=== PATIENT | female | born 1975 | race American Indian/Alaskan Native ===

== ENCOUNTER 2019-09-28 12:46 | Outpatient (CLI) | payer BC ==
--- NOTE | 2019-09-28 14:18 | Mammography Report ---
BILATERAL DIGITAL SCREENING MAMMOGRAM WITH CAD INDICATION: Routine screening mammography. TECHNIQUE: Digital bilateral 2D mammography was obtained in the craniocaudal and mediolateral obliq ue projections. This examination was interpreted with the benefit of Computer-Aided Detection mumtazi s. COMPARISON: 07/25/2013. FINDINGS: Breast Density: The breasts are almost entirely fatty. No suspicious mass, microcalcifications, or architectural distortion. IMPRESSION: No evidence of breast malignancy. Recommend routine screening mammogram in one year. BI-RADS Category 1: Negative. No mammographic evidence of malignancy. Recommend routine screening m ammography in one year. A "normal" or negative report should not discourage follow up or biopsy of a clinically significant f inding. A written summary of these findings will be mailed to the patient. The patient will be entered into a mammography reporting system which will generate a reminder letter for the patient's next appointmen t at the appropriate interval. The [employer] recommends yearly mammograms starting at age 40 and continuing as l anne marie as a woman is in good health. Breast MRI is recommended for women with an approximate 20-25% or greater lifetime risk of breast cancer, including women with a strong family history of breast or ova jhonatan cancer or who have been treated for Hodgkin's disease. Signer Name: Tommy Alfredo MD Signed: 09/28/2019 2:14 PM Workstation Name: [id number]
== END 2019-09-28 12:47 | disposition home or self-care (01) ==
LOC: MAMMO 12:46
PROVIDERS: ATTEND Obstetrics & Gynecology
DX: Z12.31 Encounter for screening mammogram for malignant neoplasm of breast (principal); N64.89 Other specified disorders of breast
CPT/HCPCS: 77067

== ENCOUNTER 2020-06-20 06:08 | Observation (INO) | payer BC ==
--- NOTE | 2020-06-14 16:51 | History and Physical Report ---
History of Present Illness Date of examination: 06/14/20 History of present illness: This is a 44 years old female who presents preoperative examination. The patient complains of menorrhagia and abnormal periods, metrorrhagia, dysmenorrhea, pelvic pain, The symptoms began 12 months ago. She complains of clotting, history of fibroids and cramping, irregular menses. Patient denies mid-cycle spotting, lack of menses, history of ovarian cysts, history of thyroid disease, history of PCOS, history of bleeding disorder, lightheadedness and fatigue. Interval between menses is 22 days and 28 days. Menstrual flow lasts 7 days and > 7 days. Patient reports that for pain she uses Tylenol and ibuprofen without much releif. Patient's symptoms when present disrupts her normal daily activities Patient desires definitive treatment. Patient's work up has included hysterosonogram which revealed myomas with a benign endometrial biopsy. Vital Signs: Patient Profile: 44 Years Old Female LMP: 05/31/2020 Height: 69 inches (175.26 cm) Weight: 257 pounds BMI: 37.95 BP sittin / 60 (left arm) Pt. in pain? no Menstrual History: LMP (date): 05/31/2020 Current Method of Contraception: BTL Past History : 2 Term Births: 2 Premature Births: 0 Living Children: 2 Para: 2 Mult. Births: 0 Prev : 0 Aborta: 0 Elect. Ab: 0 Spont. Ab: 0 Ectopics: 0 PROTECTION AGENT History Uterine Surgery (not C/S): negative Operations: Tubal Ligation (04/10/2016) Hospitalizations: negative Anesthesia Complications: negative Abnormal PAP: negative Uterine Anomaly: positive fibroids AGUSTINA Exposure: negative Infertility: negative Infection History HIV Risk Eval: no Hep B Immunized: no TB exposure: no Personal hx. of genital herpes: no Partner hx. of genital herpes: no Rash/viral illness since LMP: no Hx of STD: None Current Allergies (reviewed today): * NKDA (Critical) Past Medical History: Fibroids Past Surgical History: Tubal Ligation (04/10/2016) Family History Summary: General Comments - FH: No Family History of Ovarvian Cancer Family History of Colon Cancer--sister dx at age 34, FH bone cancer--mother Family History Breast Cancer(two cousins) Social History: Patient is Risk Factors: Smoked Tobacco Use: Former smoker Smokeless Tobacco Use: Never Passive smoke exposure: no Alcohol use: yes Type: occ Review of Systems General Complains of fatigue. Denies fever, chills, sweats, anorexia, weakness, malaise, weight loss and sleep disorder. Complains of menorrhagia, pelvic pain and painful periods. Denies vaginal discharge, incontinence, dysuria, hematuria, urinary frequency, amenorrhea, abnormal vaginal bleeding, genital sores, decreased libido, painful sex, urinary urgency, hot flashes, vaginal dryness, vaginal itching and vaginal odor. CV Denies chest pains, palpitations, syncope, dyspnea on exertion, orthopnea, PND and peripheral edema. Resp Denies cough, dyspnea at rest, excessive sputum, hemoptysis, wheezing and pleurisy. GI Denies nausea, vomiting, diarrhea, constipation, change in bowel habits, abdominal pain, melena, hematochezia, jaundice, gas/bloating, indigestion/heartburn, dysphagia and odynophagia. Breast Denies left breast lump, right breast lump, nipple discharge, bloody discharge from nipple, breast pain, abnormal mammogram and breast enlargement. Psych Denies depression, anxiety, irritability and mood swings. Past History Past Medical History: other (SEE HPI FOR DETAILS) Past Surgical History: Other (SEE HPI FOR DETAILS) Social history: , full code, other (SEE HPI FOR DETAILS) Family history: other (SEE HPI FOR DETAILS) Medications and Allergies Allergies Allergy/AdvReac Type Severity Reaction Status Date / Time No Known Allergies Allergy Unverified 06/12/20 12:40 Home Medications Medication Instructions Recorded Confirmed Last Taken Type Omeprazole Magnesium [PriLOSEC Otc] 20 mg PO QDAY PRN 06/12/20 06/12/20 Unknown History Review of Systems Constitutional: other (SEE HPI FOR DETAILS) Exam - Physical Exam Narrative exam: HEENT: normocephalic, no lesions or deformities Skin no ulcers, xanthomas Chest: respiratory effort normal, clear to auscultation CV: regular, normal S1-S2, no murmur, no rub, no gallop Abdomen: soft, non-tender, no masses, bowel sounds normal obese Musculoskeletal: grossly normal ROM in joints, no joint tenderness or muscle weakness Neuro: no gross anomalities Extremities: no clubbing, cyanosis, or edema PROTECTION AGENT Exams Vulva/Vagina: normal appearance, no discharge, lesions. No evidence of cystocele or rectocele. Cervix: No lesions; no cervical motion tenderness Uterus: enlarged uterus 8 - 10 weeks size Adnexae: unable to palpate due to obesity Rectovaginal: Rectal exam deferred due to colonoscopy recently performed or is planned Assessment and Plan - Patient Problems (1) Intramural leiomyoma of uterus Status: Acute Plan to address problem: Diagnosis explained to patient . Questions answered. Patient's symptoms when present disrupts her normal daily activities Discussed with patient various medical, surgical and radiological therapies common for treatment including expectant management, myomectomy hysterectomy and uterine artery embolization Patient desires hysterectomy Discussed risks and benefits of laparotomy, laparoscopy, vaginal and robotic assisted approaches for hysterectomies Patient desires robotic assisted total hysterectomy. Patient desires robotic assisted total hysterectomy. Consent reviewed and signed . The risks and alternatives for this surgery were reviewed with the patient. Discuss the risks of the surgery including infection, bleeding possibly heavy enough to require a blood transfusion, possible damage to bowel, bladder or ureter. Patient understand that this surgery with make her sterile.Patient understands if her ovaries are removed she will become menopausal. Also if unable to complete robitcally a laparotomy may requiired. Patient understands and desires to proceed. (2) Severe dysmenorrhea Status: Acute Plan to address problem: Patient complains of worsening pain. Probably secondary to # 1 (3) Menorrhagia Status: Acute Qualifiers: Menorrhagia type: with regular cycle Qualified Code(s): N92.0 - Excessive and frequent menstruation with regular cycle Plan to address problem: Probably secondary to # 1 (4) Adult BMI 37.0-37.9 kg/sq m Status: Chronic
--- NOTE | 2020-06-18 09:37 | Anesthesia Consultation ---
Anesthesia Consult and Med Hx Date of service: 06/18/20 - Airway Anesthetic Teeth Evaluation: Caps, Crowns ROM Head & Neck: Adequate Mental/Hyoid Distance: Adequate Mallampati Class: Class II Intubation Access Assessment: Good - Pre-Operative Health Status ASA Pre-Surgery Classification: ASA3 Proposed Anesthetic Plan: General Nerve Block: TAP - Pulmonary Hx Smoking: Yes (Former) Hx Asthma: Yes (Not treated in a very long time) Hx Respiratory Symptoms: No (+2FS) Hx Sleep Apnea: No (Denies) - Central Nervous System Hx Neuromuscular Disorder: Yes (PCOS) Hx Psychiatric Problems: No - Gastrointestinal Hx Gastroesophageal Reflux Disease: Yes - Endocrine Hx Renal Disease: No Hx Liver Disease: No Hx Thyroid Disease: Yes (In the past) - Hematic Hx Anemia: Yes Hx Sickle Cell Disease: No - Other Systems Hx Alcohol Use: Yes (Occas) Hx Cancer: No
[2020-06-18 10:03] LABS: Basophils % (Auto) 0.5 % (0.0-1.8); Eosinophils # (Auto) 0.2 K/mm3 (0.0-0.4); Eosinophils % (Auto) 2.6 % (0.0-4.3); Hematocrit 34.9 % (30.3-42.9); Hemoglobin 10.7 gm/dl (10.1-14.3); Lymphocytes # (Auto) 1.6 K/mm3 (1.2-5.4); Lymphocytes % (Auto) 27.4 % (13.4-35.0); Mean Corpuscular HGB Conc 31 % (30-34); Mean Corpuscular Volume 75 fl (79-97); Monocytes # (Auto) 0.7 K/mm3 (0.0-0.8); Monocytes % (Auto) 12.8 % (0.0-7.3); Platelet Count 462 K/mm3 (140-440); Red Blood Count 4.63 M/mm3 (3.65-5.03); Red Cell Distribution Width 17.6 % (13.2-15.2)
[2020-06-18 10:41] LABS: BUN/Creatinine Ratio 14; Blood Urea Nitrogen 11 mg/dL (7-17); Hemolysis Index 0
[~2020-06-20 06:08] MED LIST: ACETAMINOPHEN 500 MG TAB PO ONE; CELECOXIB 200 MG CAP PO NR; GABAPENTIN 300 MG CAP PO NR; LACTATED RINGERS 1,000 ML IV SCH; MAGNESIUM OXIDE 400 MG TAB PO ONE; MIDAZOLAM 2 MG/2 ML INJ IV NR; fentaNYL 100 MCG/2 ML INJ IV ONE
[2020-06-20] MEDS ORDERED: NEOMY 40 MG/POLYMYXIN B 200,000 UNITS/ML (GU) AMPULE IR ONE ×2 (06:22→08:52)
[2020-06-20] MEDS ORDERED: METHYLENE BLUE 50 MG/10 ML AMP ONE (06:23)
[2020-06-20] MEDS ORDERED: BUPIVACAINE/PF (0.25%) 2.5 MG/ML 30 ML VIAL INFILTRATI ONE (07:00)
[2020-06-20] MEDS ORDERED: ceFAZolin/Water 2 GM/20 ML 2 GM/20 ML SYRINGE IV NR (07:00)
[2020-06-20] MEDS ORDERED: LIDOCAINE (1%) 10 MG/1 ML VIAL 20 ML MDV ONE (07:02)
[2020-06-20] MEDS ORDERED: dexAMETHasone 20 MG/5 ML VIAL ONE ×2 (07:02→07:32)
[2020-06-20] MEDS ORDERED: HYDROmorphone 1 MG/1 ML INJ IV PRN ×2 (07:16)
[2020-06-20] MEDS ORDERED: ONDANSETRON 4 MG/2 ML INJ IV PRN ×2 (07:16→11:13)
--- NOTE | 2020-06-20 07:16 | Anesthesia Day of Surgery ---
Anesthesia Day of Surgery - Day of Surgery Patient Examined: Yes Patient H&P Reviewed: Yes Patient is NPO: Yes
--- NOTE | 2020-06-20 07:26 | Anesthesia Day of Surgery ---
Anesthesia Day of Surgery - Day of Surgery Patient Examined: Yes Patient H&P Reviewed: Yes Patient is NPO: Yes
--- NOTE | 2020-06-20 07:28 | Progress Note ---
Regional Anesthesia Block - Regional Anesthesia Block Start Time: 07:05 Stop Time: 07:15 Performed By:: RJ GREEN Procedure: Kofi Tap Block with Ultrasound Pt Id, consent, time out; performed. Pt on monitor, VSS stable, sedation given per pre-op RN. Sterile prep and drape. Left side Landmarks Identified with ultrasound. 3cc 1% lido skin wheel. Needle advance in plane, 15cc .25% bupivacaine with 15 m ns injected intimately with negatives aspiration. Right side Landmarks Identified with ultrasound. 3cc 1% lido skin wheel. Needle advance in plane, 15cc .25% bupivacaine with 15 m ns injected intimately with negatives aspiration Pt tolerated procedure will, VSS stable. Right side Landmarks Identified with ultrasound. 3cc 1% lido skin wheel. Needle advance in plane, 15cc .25% bupivacaine injected intimately with negatives aspiration. Pt tolerated procedure will, VSS stable.
[2020-06-20] MEDS ORDERED: ROCURONIUM 50 MG/5 ML INJ IV ONE (07:32)
[2020-06-20] MEDS ORDERED: LIDOCAINE MPF (2%) 20 MG/1 ML VIAL 5 ML ONE (07:32)
[2020-06-20] MEDS ORDERED: propofoL 200 MG/20 ML VIAL IV ONE (07:33)
[2020-06-20] MEDS ORDERED: HYDROmorphone 1 MG/1 ML INJ ONE (07:45)
[2020-06-20] MEDS ORDERED: GLYCOPYRROLATE 0.4 MG/2 ML INJ ONE (07:48)
[2020-06-20] MEDS ORDERED: PHENYLEPHRINE/NS 1,000 MCG/10 ML SYRINGE (OR USE) IV ONE (07:48)
[2020-06-20] MEDS ORDERED: NEOSTIGMINE 10MG/10 ML INJ MDV ONE (07:48)
[2020-06-20] MEDS ORDERED: SUCCINYLCHOLINE CHLORIDE 200 MG/10 ML INJ MDV ONE (07:49)
[2020-06-20] MEDS ORDERED: SODIUM CHLORIDE 0.9% IRR 1,500 ML BOTTLE IR ONE (08:51)
[2020-06-20] MEDS ORDERED: SODIUM CHLORIDE 0.9% IRRIG SOLN 2000 ML IR ONE (08:53)
--- NOTE | 2020-06-20 10:23 | Operative Report ---
Operative Report Operative Report: Date of procedure: June 20, 2020 Pre-operative diagnosis: Symptomatic leiomyomata with menorrhalgia and d ysmenorrhea. Body mass index of 38 kg/m Post-operative diagnosis: Same Procedure name(s):Robotic Assisted Total Hysterectomy with bilateral salpingectomy Surgeon: Toni Bonds MD Satellite Installer: Nidia Lin, certified emergency vehicle technician Anesthesia: General EBL: 30 cc Complications: None Findings: Patient with uterus approximately 8 to 10 weeks size with a posterior myoma measuring about 4 to 5 cm in diameter. Had normal-appearing ovaries bilaterally and bilaterally interrupted fallopian tubes Specimen(s): Uterus with cervix and bilateral fallopian tubes Procedure: Patient was brought to the operating room where general anesthesia was induced without difficulty. Patient was placed in the dorsal lithotomy position. Prepped and draped in the usual sterile manner for robotic procedure. Clark catheter was placed without difficulty. Speculum was placed in the vagina. A medium V-Care Uterine manipulator was placed without difficulty. Attention was now switched to the patient's abdomen. A vertical supra-umbilicus incision was made with a scalpel. A 10-12 trocar was placed in this incision under direct visualization. Intra-abdominal placement was verified with no evidence of internal organ damage. The patient was insufflated approximately 3 and half liters of CO2 gas. The patient pelvic findings were noted as above. It was determined that the patient was a candidate for robotic procedure. On both sides the umbilical incision at about 8 cm, incisions were made for robotic trocars. Each robotic trocar was placed under direct visualization with no evidence of internal organ damage. One 5 mm trocar was placed 2 fingerbreadths above the right iliac crest. A 5 mm camera was placed in the right lower quadrant trocar, the 10-12 trocar was removed and a Santiago Dennison laparoscopic port closure device was placed through this incision under direct visualization with no evidence of internal organ damage. The camera was then replaced into this port. At this time the patient was placed in extreme Trendelenburg. The da Sathish robot was then docked on the patient's left side. The trocars connected to the robot appropriately robotic instruments were placed under direct visualization no evidence of internal organ damage.. At this time I took my place under the robotic operating forman. Starting on the patient's right side the ureter was identified and found to be out of the operative field. Using the robotic vessel sealer the mesosalpinx under the fallopian tube were cauterized and cut starting from the distal end. Utero-ovarian complex was then cauterized and cut. This was followed by cauterizing and cutting the right fallopian tube and right round ligament. The broad ligament was then opened. The bladder flap was formed anteriorly. The posterior broad ligament was then excised. The uterine vessels were skeletonized. The ureter was clearly seen out of the operative field. The bladder was pushed away from the anterior uterus. The right uterine vessels were then cauterized and cut. Attention was then switched to the patient's left side. The same procedure was repeated on the left side with perform the salpingectomy followed by isolating the uterine vessels cauterized and cutting and completing the bladder flap from the left side. At this time the uterus was appearing very cyanotic. After inspecting the bladder flap to insured no evidence of bladder injury, the colpotomy was then started. Incision started at 6:00 until the V-Care could be seen. This incision was extended from 6:00 to 9:00. Then from 6:00 to 3:00. Then from 9:00 to 12:00. This incision was extended from 3:00 to 12:00. At this time colpotomy was complete with no evidence of adjacent organ damage. The creative assistant remove the uterus from through the colpotomy site. The vaginal cuff was irrigated and cauterized and found to be hemostatic. The cuff was closed with roboticly using 0 V- Lock suture. This closure was hemostatic after irrigation and Bovie. All pedicles were inspected and found to be hemostatic. The ureters were identified bilaterally and found to be functioning normal. The patient had clear urine in the Clark catheter with no evidence of mixture with blood. Juanita was placed on the cuff and pedicles for postoperative hemostasis . All instruments were then removed. The large trocar sites were closed in layers 2-0 Vicryl and 4-0 Monocryl. The smaller incisions were closed subcuticularly with 4-0 Monocryl. Dermabond was placed over the skin incisions. The patient tolerated procedure well. She was awakened in the operating room and accompanied to the recovery room in good condition.
[2020-06-20] MEDS ORDERED: D5W/LACTATED RINGERS 1,000 ML IV SCH (11:13)
[2020-06-20] MEDS ORDERED: HYDROcodone/ACETAMINOPHEN 5-325 MG TAB PO PRN (11:13)
[2020-06-20] MEDS ORDERED: ACETAMINOPHEN 325 MG TAB PO PRN (11:13)
[2020-06-20] MEDS ORDERED: KETOROLAC 30 MG/1 ML INJ IV SCH (11:13)
[2020-06-20] MEDS ORDERED: MAGNESIUM HYDROXIDE (MOM) ORAL LIQD UDC PO PRN (11:13)
--- NOTE | 2020-06-20 11:30 | Post Anesthesia Evaluation ---
- Post Anesthesia Evaluation Patient Participated: Yes Airway Patent: Yes Stable Respiratory Function: Yes Nausea/Vomiting: No Temp > 96.8F: Yes Pain Manageable: Yes Adequeate Hydration: Yes Anesthesia Complications: No Block Receding Appropriately: Not Applicable Patient on Ventilator: No
[2020-06-20] MEDS ORDERED: ceFAZolin/NS 1 GM/50 ML 1 GM/50 ML BAG IV SCH (14:00)
[2020-06-20 15:50] LABS: Hematocrit 34.9 % (30.3-42.9); Hemoglobin 10.8 gm/dl (10.1-14.3)
--- NOTE | 2020-06-20 17:34 | Event Note ---
Date: 06/20/20 Day of surgery. Discuss operative findings with patient and questions answered. Patient without fever. Denies any nausea or vomiting. Patient has voided without any complications. Patient desires discharge at this evening. Will ambulate in halls. Patient is tolerating full liquid diet and evening tray of regular diet has just arrived. We will continue routine postoperative care. Patient H&H is stable.
[2020-06-20 17:36] VITALS: BP 130/89
--- NOTE | 2020-06-20 17:38 | Short Stay Summary ---
Short Stay Documentation Date of service: 06/20/20 - History Past Medical History: other (SEE HPI FOR DETAILS) Past Surgical History: Other (SEE HPI FOR DETAILS) Social history: , full code, other (SEE HPI FOR DETAILS) - Allergies and Medications Current Medications: Allergies No Known Allergies Allergy (Unverified 06/12/20 12:40) Home Medications Medication Instructions Recorded Confirmed Last Taken Type Omeprazole Magnesium [PriLOSEC Otc] 20 mg PO QDAY PRN 06/12/20 06/12/20 Unknown History Ibuprofen [Motrin 800 MG tab] 800 mg PO Q6H PRN #30 tablet 06/20/20 Unknown Rx oxyCODONE /ACETAMINOPHEN [Percocet 1 - 2 tab PO Q6HR PRN #20 tablet 06/20/20 Unknown Rx 5/325 mg] Active Medications Acetaminophen (Tylenol) 650 mg PO Q4H PRN PRN Reason: Pain MILD(1-3)/Fever >100.5/BAEZ Hydrocodone Bitart/Acetaminophen ([place] 5/325) 2 each PO Q6H PRN PRN Reason: Pain, Moderate (4-6) Last Admin: 06/20/20 15:44 Dose: 2 each Documented by: Docusate Sodium (Colace) 100 mg PO BID NASIR Hydromorphone HCl (Dilaudid) 0.5 mg IV Q10MIN PRN PRN Reason: Pain , Severe (7-10) Stop: 06/20/20 23:00 Dextrose/Lactated Ringer's (D5lr) 1,000 mls @ 125 mls/hr IV DIRECT NASIR Cefazolin Sodium (Ancef/Ns 1 Gm/50 Ml) 1 gm in 50 mls @ 100 mls/hr IV Q8H NASIR; Protocol Stop: 06/20/20 22:29 Ketorolac Tromethamine (Toradol) 30 mg IV Q6H NASIR Stop: 06/21/20 10:59 Magnesium Hydroxide (Milk Of Magnesia) 30 ml PO Q4H PRN PRN Reason: Constipation Ondansetron HCl (Zofran) 4 mg IV Q8H PRN PRN Reason: Nausea And Vomiting Sodium Chloride (Sodium Chloride Flush Syringe 10 Ml) 10 ml IV PRN PRN PRN Reason: LINE FLUSH - Physical exam General appearance: no acute distress HEENT: Atraumatic Lungs: Normal air movement Breasts: deferred Heart: Regular rate Gastrointestinal: tenderness (Appropriately day of surgery), distended (Consistent with day of surgery), obese, other (Incisions intact) Female Genitourinary: deferred Rectal Exam: deferred Extremities: no ischemia, pulses intact Neurological: Normal speech, Normal tone - Brief post op/procedure progress note Date of procedure: 06/20/20 (See dictated operative note for details) Condition: stable - Hospital course Hospital course: Patient was admitted underwent the above him procedure without any complications. Patient will be discharged with follow-up in office in 1-2 weeks for postop check. - Disposition Condition at discharge: Good Disposition: DC-01 TO HOME OR SELFCARE - Discharge Diagnoses (1) Intramural leiomyoma of uterus Status: Acute (2) Severe dysmenorrhea Status: Acute (3) Menorrhagia Status: Acute Qualifiers: Menorrhagia type: with regular cycle Qualified Code(s): N92.0 - Excessive and frequent menstruation with regular cycle (4) Adult BMI 37.0-37.9 kg/sq m Status: Chronic (5) Status post hysterectomy Status: Acute (6) Status post robot-assisted surgical procedure Status: Acute Short Stay Discharge Plan Activity: advance as tolerated Diet: regular Wound: open to air Additional Instructions: Patient instructed no heavy lifting for 4 weeks. No intercourse for 8 weeks. Call office for fever, chills, nausea, vomiting or pain not controlled by pain medications. Ambulation is encouraged. Patient's call for heavy vaginal bleeding. Patient instructed to keep her scheduled post operative office appointment. Follow up with: EDUARDA PARIS [Other] - 7 Days Prescriptions: Ibuprofen [Motrin 800 MG tab] 800 mg PO Q6H PRN #30 tablet PRN Reason: Pain oxyCODONE /ACETAMINOPHEN [Percocet 5/325 mg] 1 - 2 tab PO Q6HR PRN #20 tablet PRN Reason: Pain
[2020-06-20] MEDS ORDERED: DOCUSATE SODIUM 100 MG CAP PO SCH (22:00)
== END 2020-06-20 18:29 | disposition home or self-care (01) ==
LOC: OR 06:08 → OB 10:10
PROVIDERS: ADMIT Obstetrics & Gynecology; ATTEND Obstetrics & Gynecology
DX: N92.0 Excessive and frequent menstruation with regular cycle (principal); D25.1 Intramural leiomyoma of uterus; N94.6 Dysmenorrhea, unspecified; Z98.890 Other specified postprocedural states; Z68.37 Body mass index [BMI] 37.0-37.9, adult; Z90.710 Acquired absence of both cervix and uterus; Z98.51 Tubal ligation status; Z87.891 Personal history of nicotine dependence
CPT/HCPCS: 36415; 58573; 64450; 80048; 84703; 85014; 85018; 85025; 86850; 86900; 86901; 88307; 96360; 96361; A4217; G0378; J0330; J0690; J1100; J1170; J2250; J2370; J2405; J2704; J2710; J3010; J7120; S2900; Q9968

== ENCOUNTER 2021-03-10 10:05 | Outpatient (CLI) | payer BC ==
--- NOTE | 2021-03-10 12:19 | Mammography Report ---
DEXA BONE DENSITY SCAN INDICATION / CLINICAL INFORMATION: OSTEOPOROSIS. 45 years Female COMPARISON: None available. LUMBAR SPINE, L1-L4: - Bone mineral density (BMD) = 1.110 g/cm2. - T-score = 0.6 - Z-score = 0.0 Change (%) since most recent prior (if available): None available. LEFT HIP, TOTAL : - Bone mineral density (BMD) = 1.151 g/cm2. - T-score = 1.7 - Z-score = 0.8 Change (%) since most recent prior (if available): None available. IMPRESSION: 1. WHO Classification: Normal bone density. Fracture Risk: Not Increased. Note: 10-Year Fracture Risk (FRAX) not reported. This DEXA unit lacks FRAX functionality. BMD Reporting Guidelines (ISCD, 2015) BMD Reporting in Postmenopausal Women and in Men Age 50 and Older - T-scores are preferred. - The WHO densitometric classification is applicable. BMD Reporting in Females Prior to Menopause and in Males Younger Than Age 50 - Z-scores, not T-scores, are preferred. This is particularly important in children. - A Z-score of -2.0 or lower is defined as below the expected range for age, and a Z-score above -2.0 is within the expected range for age. - Osteoporosis cannot be diagnosed in men under age 50 on the basis of BMD alone. - The WHO diagnostic criteria may be applied to women in the menopausal transition. http://www.iscd.org/official-positions/4946-cdcc-hogukmea-positions-adult/ Signer Name: Josh Whitmore MD Signed: 03/10/2021 12:15 PM Workstation Name: [id number]
--- NOTE | 2021-03-10 15:36 | Mammography Report ---
DIGITAL SCREENING MAMMOGRAM WITH CAD, 03/10/2021 CLINICAL INFORMATION / INDICATION: Routine screening TECHNIQUE: Digital bilateral 2D mammography was obtained in the craniocaudal and mediolateral obliqu e projections. This examination was interpreted with the benefit of Computer-Aided Detection analysis . COMPARISON: 09/28/2019 FINDINGS: Breast Density: The breasts are almost entirely fatty. No dominant mass, suspicious calcifications, or architectural distortion in either breast. IMPRESSION: No mammographic evidence of malignancy. Follow up recommendation: Routine yearly BI-RADS Category 1: Negative. A "normal" or negative report should not discourage follow up or biopsy of a clinically significant f inding. A written summary of these findings will be mailed to the patient. The patient will be entered into a mammography reporting system which will generate a reminder letter for the patient's next appointmen t at the appropriate interval. The [employer] recommends yearly mammograms starting at age 40 and continuing as l anne marie as a woman is in good health. Breast MRI is recommended for women with an approximate 20-25% or greater lifetime risk of breast cancer, including women with a strong family history of breast or ova jhonatan cancer or who have been treated for Hodgkin's disease. Signer Name: Roverto Dixon MD Signed: 03/10/2021 3:32 PM Workstation Name: [id number]
== END 2021-03-10 10:06 | disposition home or self-care (01) ==
LOC: MAMMO 10:05
PROVIDERS: ATTEND Obstetrics & Gynecology Gynecologic Oncology
DX: Z12.31 Encounter for screening mammogram for malignant neoplasm of breast (principal); Z78.0 Asymptomatic menopausal state
CPT/HCPCS: 77067; 77080